=== PATIENT | male | born 1935 | race Caucasian/White ===

== ENCOUNTER → 2016-11-20 | Day surgery (SDC) | payer OTHER, MEDICARE ==
[~2016-11-20] VITALS: Ht 175.3 cm; Wt 77.1 kg
[~2016-11-20] MED LIST: AMLODIPINE BESYL5 M1 PO; AMLODIPINE5 MG PO; ARICEPT 5MG TAB5 MG PO; ASPIR 8181 MG PO; ASPIRIN EC81 M1 PO; COUMADIN 2 MG TA2 MG PO; COUMADIN 5 MG TA5 MG PO; COUMADIN3 M1 PO; DEPAKOTE ER 25250 MG PO; DIVALPROEX SOD250 M1 PO; DIVALPROEX SOD250 M2 PO; EXELON1 EACH TOP; FINASTERIDE5 M1 PO; FLOMAX(MONOGRA0.4 MG PO; FLOMAX0.4 M1 PO; FOLIC ACID0.4 M1 PO; FOLIC ACID0.8 MG PO; KLOR-CON 1010 ME1 PO; KLOR-CON 10MEQ10 MEQ PO; LISINOPRIL2.5 MG PO; LISINOPRIL20 M1 PO; MINITRAN1 EAC2 TOP; MULTIVITAMIN1 TAB PO; NITROGLYCER0.4 MG/HR TOP; PROS5 PO; TYLENOL TAB 32325 MG PO; VITAB121000 PO; VITAMIN D32000 I1 PO; ZOCOR20 M1 PO; ZOCOR5 MG PO; ZOLOFT 100 MG100 MG PO; ZOLOFT100 M1 PO
[2016-11-20 06:42] LABS: PT 12.3 SEC (9.4-12.5)
--- NOTE | 2016-11-23 17:14 | Operative Report ---
Operative/Inv Procedure Report Surgery Date: 11/20/16 Name of Procedure: Open mesh repair of umbilical hernia Pre-Operative Diagnosis: Umbilical hernia and left Spigelian hernia Post-Operative Diagnosis: Just umbilical hernia Estimated Blood Loss: scant Surgeon/Solar Sales Representative And Assessor: JÚNIOR GALAN,GURVINDER FARFAN Anesthesia: general endotracheal tube Operative/Procedure Note Note: Patient was placed on the OR table in the supine position. After successful induction of general anesthesia, another timeout was done, antibiotics given, the abdomen was clipped prepped and draped in the usual sterile fashion. Upon exam he had an obvious umbilical hernia, but I could not feel the Spigelian. An incision was planned overlying the umbilical hernia, this spot was infiltrated with local anesthetic and then made with a 15 blade. This was deepened with cautery and the herniated fat and overlying sac were dissected circumferentially off the fascia, defining the true edges of the defect. It was oriented horizontally, we then inserted the Ventralex coated 4.3 centimeter mesh underneath the defect using the tails to center it and then closed the defect with interrupted 2-0 Maxon sutures in this case 4, incorporating the mesh with each bite. The subcutaneous layer and Eber's fascia were reapproximated to cover. The incision was irrigated and then the skin was reapproximated with a running subcuticular 4-0 Biosyn, followed by Mastisol, Steri-Strips Telfa Tegaderm. We turned our attention to the left lower quadrant, after infiltrating local anesthetic and made an incision about 4 cm long transverse spanning the semilunar line. This was deepened to the fascia of both the oblique and the rectus muscles these 2 fascias were opened and the underlying muscle layer was explored and through this incision we were able to explore both inferiorly and superiorly medially and laterally and there was no obvious hernia defect, despite the history. There was no obvious left inguinal hernia either. So we closed these fascial incisions with 2-0 Maxon suture reapproximated the subcutaneous layers with interrupted 3-0 Vicryl sutures and a running subcuticular 4-0 Biosyn suture for the skin itself followed by Mastisol Steri- Strips Telfa and Tegaderm. Overall EBL minimal lap and sponge counts correct wound expectancy clean IV fluids crystalloid complications none patient tolerated the procedure well was awakened extubated returned to the recovery room in satisfactory condition.
== END ==
LOC: STS 02:56
PROVIDERS: Surgery
DX: K42.9 Umbilical hernia without obstruction or gangrene (principal); I48.91 Unspecified atrial fibrillation; Z79.01 Long term (current) use of anticoagulants; I10 Essential (primary) hypertension; Z95.0 Presence of cardiac pacemaker; I25.10 Atherosclerotic heart disease of native coronary artery without angina pectoris; F03.90 Unspecified dementia, unspecified severity, without behavioral disturbance, psychotic disturbance, mood disturbance, and anxiety
CPT/HCPCS: 36415; C1781; C9399; J0131; J0690; J1885; J2001

== ENCOUNTER 2017-01-01 15:50 | Emergency (ER) | payer OTHER, MEDICARE ==
[~2017-01-01] VITALS: Ht 182.9 cm; Wt 81.6 kg
--- NOTE | 2017-01-01 16:18 | ED GENERAL ADULT ---
History of Present Illness General Chief Complaint: Altered Mental Status Stated Complaint: AMS Source: patient, family, EMS Exam Limitations: confusion, dementia Allergies Coded Allergies: quinidine (UNKNOWN - PER PT DOES NOT REMEMBER 12/16/15) Reconcile Medications Amlodipine Besylate 5 MG TABLET 1 TAB PO DAILY BP (Reported) Aspirin (Ecotrin*) 81 MG TABLET.DR 1 TAB PO 3XW HEART/BLOOD (Reported) Divalproex Sodium 250 MG TABLET.DR 250 MG PO BID UNKNOWN (Reported) Finasteride 5 MG TABLET 1 TAB PO DAILY BPH (Reported) Folic Acid 0.4 MG TABLET 1 TAB PO DAILY SUPPLEMENT (Reported) Lisinopril (Unknown Strength) TABLET (Unknown Dose) PO DAILY BP (Reported) Nitroglycerin (Minitran) 0.4 MG/HOUR PATCH.TD24 1 PATCH TOP AD CHEST PAIN/ HEART (Reported) Potassium Chloride (Klor-Con 10) 10 MEQ TABLET.ER 1 TAB PO DAILY SUPPLEMENT ( Reported) Rivastigmine (Exelon) (Unknown Strength) PATCH.TD24 (Unknown Dose) TOP AD PATCH (Reported) Sertraline HCl (Zoloft) 100 MG TABLET 1 TAB PO DAILY DEPRESSION (Reported) Simvastatin (Zocor*) 20 MG TABLET 1 TAB PO DAILY CHOLESTEROL (Reported) Tamsulosin HCl (Flomax) 0.4 MG CAP.ER.24H 1 CAP PO DAILY BPH (Reported) Warfarin Sodium (Coumadin) (Unknown Strength) TABLET (Unknown Dose) PO AD BLOOD THINNER (Reported) Triage Nurses Notes Reviewed? yes HPI: Patient is an 81 year old male brought in by EMS for evaluation of change in mental status over the past 2 days, significantly more pronounced today. Patient's friend reports that patient has been severely confused and increasing generalized weakness today. Patient normally able to ambulate and participate in his care, has not been able to get out of bed without significant assistance today. Patient had a urine sample sent by his primary doctor yesterday, they are not sure what the results are. Patient complaining of frontal headache and dizziness. Dizziness is consistent with his chronic vertigo. Pain is mild. Patient has a chronic wound to his left anterior abdominal wall since having hernia surgery by Dr. Patel in October. Patient seen weekly by the surgeon, last seen on Wednesday, told that the wound "looked okay". Patient's friend reports that patient often sticks his fingers into the wound and that there've been blood clots from the wound. Denies recent trauma, chest pain, vomiting, diarrhea, cough, dyspnea (SHIVAM BOBBY) Vital Signs & Intake/Output Vital Signs & Intake/Output Vital Signs Date Time Temp Pulse Resp B/P Pulse O2 O2 Flow FiO2 Ox Delivery Rate 01/01 2145 98.6 89 18 154/79 100 Room Air 01/01 2102 98.3 89 15 154/89 100 Room Air 01/01 2035 99.8 80 18 150/84 100 Room Air 01/01 1939 100.7 01/01 1912 100.7 89 18 115/74 100 Room Air 01/01 1753 99 Room Air 01/01 1751 101.2 01/01 1730 101.0 89 18 124/74 99 Room Air 01/01 1628 101.2 100 20 164/74 100 Room Air ED Intake and Output 01/02 0000 01/01 1200 Intake Total Output Total 350 Balance -350 Output, Urine 350 Patient 180 lb Weight Past History Medical History Any Pertinent Medical History? see below for history Neurological: dementia, seizure Cardiovascular: aortic aneurysm, AFIB, hypertension, hyperlipidemia, PACEMAKER X 2 ( 5 BATTERY HLD CABG aortic valve replacement Renal: benign prost hyperplasia, KIDNEY STONES Psychiatric: depression Surgical History Surgical History: CABG, VALVE REPLACEMENT Hernia repair Psychosocial History Who do you live with Patient/Self What is your primary language Northern Irish Family History Hx Contributory? No (SHIVAM BOBBY) Review of Systems Review of Systems Constitutional: Reports: malaise, weakness. EENTM: Reports: no symptoms. Respiratory: Denies: cough, short of breath. Cardiovascular: Denies: chest pain. GI: Denies: diarrhea, vomiting. Genitourinary: Reports: no symptoms. Musculoskeletal: Reports: no symptoms. Skin: Reports: no symptoms. Neurological/Psychological: Reports: confusion, headache, weakness. Denies: unable to move lower ext, unable to move upper ext. Hematologic/Endocrine: Reports: bruising, bleeding. Immunologic/Allergic: Denies: splenectomy. (SHIVAM BOBBY) Physical Exam Physical Exam General Appearance: alert, awake Head: atraumatic, normal appearance Eyes: Bilateral: normal appearance, PERRL, EOMI. Ears, Nose, Throat: normal pharynx, normal ENT inspection, hearing grossly normal Neck: normal inspection, supple, full range of motion Respiratory: normal breath sounds, no respiratory distress, lungs clear Cardiovascular: regular rate/rhythm Peripheral Pulses: 2+ radial (R), 2+ radial (L), 2+ dorsalis pedis (R), 2+ dorsalis pedis (L) Gastrointestinal: normal bowel sounds, soft, 4 cm wound to left mid abdominal wall with blood clots on dressing. No significant surrounding erythema. Wound is malodorous. Back: normal inspection, normal range of motion, no vertebral tenderness Extremities: normal capillary refill, normal range of motion, 1+ bilateral lower extremity edema Neurologic/Psych: awake, alert, Disoriented to place and time. Patient slow to respond to questions. Skin: warm/dry, see abdominal exam Lymphatic: no anterior cervical korey Core Measures ACS in differential dx? No CVA/TIA Diagnosis: Yes NIH Stroke Scale: Total 3 Dt/Tm Last Known Well: No Neurological S/S of CVA: Acute Confusion, Difficulty Speaking Reason tPA not ordered: Medical Contraindication Severe Sepsis Present: No Septic Shock Present: No (LIVIER FARFAN,SHIVAM) Progress Differential Diagnoses I considered the following diagnoses in my evaluation of the patient: Intracranial bleed, stroke, pneumonia, sepsis, UTI, abdominal abscess, dementia Diagnostic Imaging: Viewed by Me: Radiology Read, CT Scan. Discussed w/RAD: Radiology Read, CT Scan. Radiology Impression: PATIENT: ABBY HOWELL PRESENT AGE: 81 PATIENT ACCOUNT NO: [id number] : 36 LOCATION: [facility] ORDERING PHYSICIAN: SHIVAM FARFAN SERVICE DATE: 01/01/17 EXAM TYPE: CAT - CT ABD & PELVIS W IV CONTRAST; CT HEAD WO IV CONTRAST EXAMINATION: CT HEAD WITHOUT CONTRAST: CT of the abdomen and pelvis with IV contrast CLINICAL INFORMATION: History of recent hernia surgery and presence of the wound. Confusion and headache. Patient is on Coumadin. Change in mental status. Fever. Open abdominal wound. COMPARISON: None TECHNIQUE: Contiguous axial imaging was performed from the skull base to vertex without intravenous administration of contrast. In addition, can take it with axial imaging was performed of the abdomen and pelvis following intravenous administration of 94 mL of Optiray 320. Coronal and sagittal reformats obtained at the acquisition workstation. DLP: 302 mGy-cm for the abdomen/pelvis. 744 mGy-cm for head. FINDINGS: HEAD: There are bilateral large subdural hygromas larger on the left than right covering the cerebral convexities. This results in a [id number] midline shift of 7 mm. Some acute subdural blood is seen in the high right parietal region posteriorly. Series 2, image 47. In addition, there is acute intracerebral hemorrhage interposed between the lentiform nucleus and the insular lobe. The hematoma is 1.3 cm x 1.6 cm, and is surrounded by vasogenic edema. There is some motion degradation involving the initial sections of base of the brain and posterior fossa. No subarachnoid hemorrhage is detected. There is no evidence of an acute territorial infarction. Sutherland-white matter tissue differentiation is maintained. The ventricles are normal in size. Abnormal attenuation within the brain parenchyma is seen surrounding the acute hemorrhage as discussed above. ABDOMEN/ PELVIS: DIRECTOR OF RETAIL MERCHANDISING: The heart is enlarged and the patient has a dual-lead pacemaker. There is stool impaction rectosigmoid colon with formed stool throughout the rest of the colon. The significant finding in the abdominal portion of the exam is a large encapsulated fluid and air-containing abscess involving the anterior abdominal wall to the left of midline in the area of previous surgery. This abscess measures 7.6 cm in width, 3 to 4 cm in AP diameter, and 12 to 13 cm in cephalocaudad dimension. There is surrounding cellulitis. An open wound may be present. The abscess cannot be from the adjacent rectus muscle and may involve the muscle itself. Opacities in both posterior costophrenic sulci either represent dependent atelectasis or an infectious process. A small calcified node is seen in the left cardiophrenic fat pad just above the diaphragm. Liver is normal in size showing no focal disease. The gallbladder contains at least 7 small gallstones. The pancreas is normal. The spleen measures 13 cm in oblique diameter. Neither kidney shows evidence of hydronephrosis or stone formation. There is cortical atrophy both kidneys and cortical scarring of the lower pole the left kidney. The urinary bladder is distended. The small and large intestine are normal. There is no bulk adenopathy. Diffuse arterial vascular disease is seen but there is no aneurysm. The prostate is average in size. There is no free fluid in the abdominal cavity. No free air is seen. There is fusion of the vertebral bodies at L4-L5 with obliteration of the disc space. A large Schmorl's node is seen involving the inferior endplate of L1. Facet arthropathy is present in the lower lumbar sacral spine. IMPRESSION: 1. Acute intracranial hemorrhage in the left frontal region between the lentiform nucleus and the insular lobe. Surrounding vasogenic edema. 2. Bilateral convexity subdural hygromas larger on the left than right. Midline shift to 7 mm from left to right. No uncal herniation. 3. Small acute component of the right subdural hematoma in the high parietal region. 4. Significant anterior abdominal wall abscess left of midline apparently in the region of the wound dehiscence following hernia surgery. 5. Cholelithiasis. 6. Cardiomegaly with pacemaker wires. 7. 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 This critical result was discussed with Shivam FARFAN at 7:10 PM on January 01 and it was ascertained that the content and urgency of the report was understood at the time of direct communication. DICTATED BY: ALETHA FISHER MD DATE/TIME DICTATED:01/01/171838 DATA MIGRATION CONSULTANT:OLIVER DATE/TIME TRANSCRIBED:1838 CONFIDENTIAL, DO NOT COPY WITHOUT APPROPRIATE AUTHORIZATION. < Electronically signed in Other Vendor System> SIGNED BY: ALETHA FISHER MD 01/01/171924 CXR Impression: PATIENT: ABBY HOWELL PRESENT AGE: 81 PATIENT ACCOUNT NO: [id number] : 36 LOCATION: [facility] ORDERING PHYSICIAN: SHIVAM FARFAN SERVICE DATE: 01/01/17 EXAM TYPE: RAD - XRY- PORTABLE CHEST XRAY EXAMINATION: XR PORTABLE CHEST CLINICAL INFORMATION: Confusion and fevers, question pneumonia. COMPARISON: None TECHNIQUE: Portable AP erect view of the chest was obtained. FINDINGS: The heart appears enlarged with a right prepectoral subclavian dual-lead pacer. There are multiple intact sternal wires. The lungs appear well expanded and clear. Rounded nodule at the left lung base in the cardiophrenic angle is likely a calcified granuloma. IMPRESSION: No acute intrathoracic process is seen. DICTATED BY: MAREK PARKER MD DATE/TIME DICTATED:01/01/171714 DATA MIGRATION CONSULTANT:OLIVER DATE/TIME TRANSCRIBED:01/01/171714 CONFIDENTIAL, DO NOT COPY WITHOUT APPROPRIATE AUTHORIZATION. <Electronically signed in Other Vendor System> SIGNED BY: MAREK PARKER MD 01/01/17 1720 Initial ED EKG: atrial flutter, ventricular paced, no acute ischemic EKG changes. Prior EKG: unchanged (LIVIER FARFAN,SHIVAM) Plan of Care: Orders Procedure Date/time Status LACTIC ACID 01/01 193 Complete BLOOD PRODUCT PICKUP 01/01 191 Active FRESH FROZEN PLASMA 01/01 190 Complete TYPE & SCREEN (NOT X-MATCH) 01/01 190 Complete Add-on Test (ER Only) 01/01 1837 Active CULTURE,URINE 01/01 163 Active URINALYSIS 01/01 163 Complete PROTHROMBIN TIME 01/01 163 Complete BLOOD CULTURE 01/01 163 Active LACTIC ACID 01/01 163 Complete COMPREHENSIVE METABOLIC PANEL 01/01 163 Complete CBC WITHOUT DIFFERENTIAL 01/01 163 Complete EKG 01/01 163 Active Current Medications Sig/Shasha Start time Last Medication Dose Stop Time Status Admin Acetaminophen 650 MG ONCE ONE 01/01 1645 CAN (Tylenol) 01/01 1646 Laboratory Tests 01/01/17 193: Lactic Acid 1.0 01/01/17 172: Anion Gap 10, Estimated GFR > 60, BUN/Creatinine Ratio 17.0, Glucose 92, Lactic Acid 1.4, Calcium 9.5, Total Bilirubin 1.1, AST 33, ALT 22, Alkaline Phosphatase 84, Total Protein 7.8, Albumin 3.8, Globulin 4.0, Albumin/Globulin Ratio 1.0 L, PT 19.0 H, INR 1.82 H, CBC w Diff NO MAN DIFF REQ, RBC 3.90 L, MCV 85.6, MCH 28.5, RDW 15.0 H, MPV 8.9, Gran % 77.1 H, Lymphocytes % 6.4 L, Monocytes % 14.7 H, Eosinophils % 1.5, Basophils % 0.3, Absolute Granulocytes 9.3 H, Absolute Lymphocytes 0.8 L, Absolute Monocytes 1.8 H, Absolute Eosinophils 0.2 , Absolute Basophils 0, PUBS MCHC 33.3 01/01/17 1704: Urine Color YEL, Urine Clarity CLEAR, Urine pH 7.5, Ur Specific [place] 1.015, Urine Protein NEG, Urine Ketones NEG, Urine Nitrite NEG, Urine Bilirubin NEG, Urine Urobilinogen 0.2, Ur Leukocyte Esterase NEG, Ur Microscopic SEDIMENT EXAMINED, Urine RBC 5-10 H, Ur Epithelial Cells RARE, Urine Mucus RARE, Urine Hemoglobin SMALL H, Urine Glucose NEG Microbiology 01/01 1730 BLOOD: Blood Culture - RECD 01/01 1721 BLOOD: Blood Culture - RECD 01/01 1704 URINE ROUT: Urine Culture - RECD 01/01/2017 4:56:22 PM: Discussed with Dr. Moscoso. 01/01/2017 5:55:27 PM: Discussed with Dr. Alvarez: once patient has obtained CT scan will review. 01/01/2017 6:49:47 PM: Patient re-evaluated, no change in neurologic status. CT scans reviewed. [facility] contacted to read the CT scans 190: Discussed with Dr. Sahu: subdurals are chronic. No neurosurgical intervention. Neurology should be contacted regarding ICH. 01/01/2017 7:17:29 PM: Discussed with Dr. Alvarez: surgical PA will come down to see patient. 01/01/2017 7:39:48 PM: Discussed with Dr. Perkins: hold antiplatelets and anticoagulants. Frequent neuro checks, should be admitted to ICU. 01/01/2017 8:39:53 PM: Medicine declined admission. Dr. Aguirre discussed case with Dr. Ardon who recommends transfer to [facility]. Discussed with Dr. Orozco([facility] attending): will contact his residents and call back regarding admission to floor or send to ED. Contacted by [facility]: patient to go to [facility] ED for evaluation. (SHIVAM BOBBY) Departure Departure Disposition: OTHER [facility] (ACUTE) Condition: Stable Clinical Impression Primary Impression: Intracranial bleed Secondary Impressions: Abdominal abscess, Hemorrhagic stroke Referrals: DOMENICO CHAND MD (PCP/Family) Departure Forms: Customer Survey General Discharge Information (SHIVAM BOBBY) PA/IS ANALYST Co-Sign Statement Statement: ED Attending supervision documentation- [X] I saw and evaluated the patient. I have also reviewed all the pertinent lab results and diagnostic results. I agree with the findings and the plan of care as documented in the PA's/IS ANALYST's documentation. [X] I have reviewed the ED Record and agree with the PA's/IS ANALYST's documentation. [] Additions or exceptions (if any) to the PAs/IS ANALYST's note and plan are summarized below: [] (IVETH GALAN,OSMANI) Critical Care Note Critical Care Note Critical Care Time: 30-74 min (LIVIER FARFAN,SHIVAM)
--- NOTE | 2017-01-01 17:20 | RADIOLOGY REPORT ---
EXAMINATION: XR PORTABLE CHEST CLINICAL INFORMATION: Confusion and fevers, question pneumonia. COMPARISON: None TECHNIQUE: Portable AP erect view of the chest was obtained. FINDINGS: The heart appears enlarged with a right prepectoral subclavian dual-lead pacer. There are multiple intact sternal wires. The lungs appear well expanded and clear. Rounded nodule at the left lung base in the cardiophrenic angle is likely a calcified granuloma. IMPRESSION: No acute intrathoracic process is seen.
[2017-01-01 17:36] LABS: ABSOLUTE BASOPHIL COUNT 0 /CUMM (0.0-0.2); ABSOLUTE EOSINOPHIL COUNT 0.2 /CUMM (0.0-0.7); ABSOLUTE GRANULOCYTE CT 9.3 /CUMM (1.4-6.5); ABSOLUTE LYMPH COUNT 0.8 /CUMM (1.2-3.4); ABSOLUTE MONOCYTE COUNT 1.8 /CUMM (0.10-0.60); BASOPHIL % 0.3 % (0.0-2.0); EOSINOPHIL % 1.5 % (0-5); GRANULOCYTE % 77.1 % (42.2-75.2); HEMATOCRIT 33.4 % (42-52); MEAN CORPUSCULAR HGB 28.5 PG (27.0-31.0); MEAN CORPUSCULAR HGB CONC 33.3 G/DL (33.0-37.0); MEAN CORPUSCULAR VOLUME 85.6 FL (80.0-94.0); MEAN PLATELET VOLUME 8.9 FL (7.4-10.4); PLATELET COUNT 286 /CUMM (130-400); WHITE BLOOD CELL COUNT 12.1 /CUMM (4.8-10.8)
--- NOTE | 2017-01-01 19:25 | CT SCAN REPORT ---
EXAMINATION: CT HEAD WITHOUT CONTRAST: CT of the abdomen and pelvis with IV contrast CLINICAL INFORMATION: History of recent hernia surgery and presence of the wound. Confusion and headache. Patient is on Coumadin. Change in mental status. Fever. Open abdominal wound. COMPARISON: None TECHNIQUE: Contiguous axial imaging was performed from the skull base to vertex without intravenous administration of contrast. In addition, can take it with axial imaging was performed of the abdomen and pelvis following intravenous administration of 94 mL of Optiray 320. Coronal and sagittal reformats obtained at the acquisition workstation. DLP: 302 mGy-cm for the abdomen/pelvis. 744 mGy-cm for head. FINDINGS: HEAD: There are bilateral large subdural hygromas larger on the left than right covering the cerebral convexities. This results in a [id number] midline shift of 7 mm. Some acute subdural blood is seen in the high right parietal region posteriorly. Series 2, image 47. In addition, there is acute intracerebral hemorrhage interposed between the lentiform nucleus and the insular lobe. The hematoma is 1.3 cm x 1.6 cm, and is surrounded by vasogenic edema. There is some motion degradation involving the initial sections of base of the brain and posterior fossa. No subarachnoid hemorrhage is detected. There is no evidence of an acute territorial infarction. Sutherland-white matter tissue differentiation is maintained. The ventricles are normal in size. Abnormal attenuation within the brain parenchyma is seen surrounding the acute hemorrhage as discussed above. ABDOMEN/PELVIS: FIXED WING AIRCRAFT FLIGHT ENGINEER: The heart is enlarged and the patient has a dual-lead pacemaker. There is stool impaction rectosigmoid colon with formed stool throughout the rest of the colon. The significant finding in the abdominal portion of the exam is a large encapsulated fluid and air-containing abscess involving the anterior abdominal wall to the left of midline in the area of previous surgery. This abscess measures 7.6 cm in width, 3 to 4 cm in AP diameter, and 12 to 13 cm in cephalocaudad dimension. There is surrounding cellulitis. An open wound may be present. The abscess cannot be from the adjacent rectus muscle and may involve the muscle itself. Opacities in both posterior costophrenic sulci either represent dependent atelectasis or an infectious process. A small calcified node is seen in the left cardiophrenic fat pad just above the diaphragm. Liver is normal in size showing no focal disease. The gallbladder contains at least 7 small gallstones. The pancreas is normal. The spleen measures 13 cm in oblique diameter. Neither kidney shows evidence of hydronephrosis or stone formation. There is cortical atrophy both kidneys and cortical scarring of the lower pole the left kidney. The urinary bladder is distended. The small and large intestine are normal. There is no bulk adenopathy. Diffuse arterial vascular disease is seen but there is no aneurysm. The prostate is average in size. There is no free fluid in the abdominal cavity. No free air is seen. There is fusion of the vertebral bodies at L4-L5 with obliteration of the disc space. A large Schmorl's node is seen involving the inferior endplate of L1. Facet arthropathy is present in the lower lumbar sacral spine. IMPRESSION: 1. Acute intracranial hemorrhage in the left frontal region between the lentiform nucleus and the insular lobe. Surrounding vasogenic edema. 2. Bilateral convexity subdural hygromas larger on the left than right. Midline shift to 7 mm from left to right. No uncal herniation. 3. Small acute component of the right subdural hematoma in the high parietal region. 4. Significant anterior abdominal wall abscess left of midline apparently in the region of the wound dehiscence following hernia surgery. 5. Cholelithiasis. 6. Cardiomegaly with pacemaker wires. 7. 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 This critical result was discussed with Shivam FARFAN at 7:10 PM on January 01 and it was ascertained that the content and urgency of the report was understood at the time of direct communication.
--- NOTE | 2017-01-01 21:43 | Cons- General Surgery ---
General Information and HPI Consulting Request Date of Consult: 01/01/17 Requested By: Shivam Recinos PA-C (ED staff) Reason for Consult: Draining abdominal wound Source of Information: patient, family, old records Exam Limitations: patient's age, dementia History of Present Illness: Patient is an 81-year-old male with a past medical history significant for aortic valve replacement/CABG/A. fib (on Coumadin), hypertension, hyperlipidemia , permanent pacemaker, BPH, history of nephrolithiasis, dementia, seizure, and depression who is status post umbilical hernia and left repair with mesh on by Joseluis Patel MD. Preoperatively, patient was thought to have a Spigelian hernia, but exploration revealed no evidence of this or inguinal hernia. Patient's postoperative course was complicated by a postoperative hematoma, requiring bedside evacuation and drainage. He was last seen by Joseluis Patel MD 4 days ago and was told that the wound looked "fine". It remains open at this time, and the patient and his caregiver have been applying dry dressings daily. He was brought into the ED today due to severe confusion and increased generalized weakness. He was found to be incontinent of a large amount of urine and febrile to 101.2. He also complained of frontal headache and dizziness upon presentation. The dizziness is thought to be consistent with his chronic vertigo. Workup in the ED revealed an acute intracranial hemorrhage with midline shift and an anterior wall abscess underlying the left lower quadrant open wound. Surgical consultation is being requested for management of the wound. Allergies/Medications Allergies: Coded Allergies: quinidine (UNKNOWN - PER PT DOES NOT REMEMBER 12/16/15) Home Med List: Amlodipine Besylate 5 MG TABLET 1 TAB PO DAILY BP (Reported) Aspirin (Ecotrin*) 81 MG TABLET.DR 1 TAB PO 3XW HEART/BLOOD (Reported) Divalproex Sodium 250 MG TABLET.DR 250 MG PO BID UNKNOWN (Reported) Finasteride 5 MG TABLET 1 TAB PO DAILY BPH (Reported) Folic Acid 0.4 MG TABLET 1 TAB PO DAILY SUPPLEMENT (Reported) Lisinopril (Unknown Strength) TABLET (Unknown Dose) PO DAILY BP (Reported) Nitroglycerin (Minitran) 0.4 MG/HOUR PATCH.TD24 1 PATCH TOP AD CHEST PAIN/ HEART (Reported) Potassium Chloride (Klor-Con 10) 10 MEQ TABLET.ER 1 TAB PO DAILY SUPPLEMENT ( Reported) Rivastigmine (Exelon) (Unknown Strength) PATCH.TD24 (Unknown Dose) TOP AD PATCH (Reported) Sertraline HCl (Zoloft) 100 MG TABLET 1 TAB PO DAILY DEPRESSION (Reported) Simvastatin (Zocor*) 20 MG TABLET 1 TAB PO DAILY CHOLESTEROL (Reported) Tamsulosin HCl (Flomax) 0.4 MG CAP.ER.24H 1 CAP PO DAILY BPH (Reported) Warfarin Sodium (Coumadin) (Unknown Strength) TABLET (Unknown Dose) PO AD BLOOD THINNER (Reported) Past History Medical History Neurological: dementia, seizure EENT: NONE Cardiovascular: aortic aneurysm, AFIB, hypertension, hyperlipidemia, PACEMAKER X 2 ( 5 BATTERY HLD CABG aortic valve replacement Respiratory: NONE Gastrointestinal: NONE Hepatic: NONE Renal: benign prost hyperplasia, KIDNEY STONES Musculoskeletal: NONE Psychiatric: depression Endocrine: NONE Blood Disorders: NONE Cancer(s): NONE HEAD WAITRESS/Reproductive: NONE Surgical History Pertinent Surgical History: CABG, hernia repair-umbilical, VALVE REPLACEMENT Hernia repair Psychosocial History Where Do You Live? Home Services at Home: Home Health Aide Primary Language: Indonesian ETOH Use: denies use Illicit Drug Use: denies illicit drug use Review of Systems Review of Systems: Positive for fever, generalized weakness, confusion, headache, dizziness, and urinary incontinence. Negative for chest pain, palpitations, shortness of breath, cough, abdominal pain, nausea, vomiting, diarrhea, constipation. Exam & Diagnostic Data Vital Signs and I&O Vital Signs Date Time Temp Pulse Resp B/P Pulse O2 O2 Flow FiO2 Ox Delivery Rate 01/01 2102 98.3 89 15 154/89 100 Room Air 01/01 2035 99.8 80 18 150/84 100 Room Air 01/01 1939 100.7 01/01 1912 100.7 89 18 115/74 100 Room Air 01/01 1753 99 Room Air 01/01 1751 101.2 01/01 1730 101.0 89 18 124/74 99 Room Air 01/01 1628 101.2 100 20 164/74 100 Room Air Physical Exam: Gen.: Patient is resting, but easily arousable. He is somewhat hard of hearing. He follows commands and verbalizes minimally. He displays some confusion and memory loss. Abdomen: There is a 4 cm, horizontal, open surgical incision in the left lower quadrant. The wound was explored and found to contain a large amount of malodorous, old organized hematoma with some purulence. There is mild surrounding erythema of the skin. The hematoma was evacuated and the wound was copiously irrigated with about 750 ML's of normal saline. It tracked down to fascia, 6 cm superiorly and about 5 cm inferiorly. No fascial defects were appreciated on digital exam. A wet-to-dry Kerlix and gauze dressing was applied. Patient tolerated this well. The other umbilical incision site is well-healed, without signs of infection. Last 24 Hours of Labs: Laboratory Tests 01/01 01/01 1937 1721 Chemistry Sodium (137 - 145 mmol/L) 135 L Potassium (3.5 - 5.1 mmol/L) 4.6 Chloride (98 - 107 mmol/L) 96 L Carbon Dioxide (22 - 30 mmol/L) 29 Anion Gap (5 - 16) 10 BUN (9 - 20 mg/dL) 17 Creatinine (0.7 - 1.2 mg/dL) 1.0 Estimated GFR (>60 ml/min) > 60 BUN/Creatinine Ratio (7 - 25 %) 17.0 Glucose (65 - 99 mg/dL) 92 Lactic Acid (0.7 - 2.1 mmol/L) 1.0 1.4 Calcium (8.4 - 10.2 mg/dL) 9.5 Total Bilirubin (0.2 - 1.3 mg/dL) 1.1 AST (17 - 59 U/L) 33 ALT (21 - 72 U/L) 22 Alkaline Phosphatase (< 127 U/L) 84 Total Protein (6.3 - 8.2 g/dL) 7.8 Albumin (3.5 - 5.0 g/dL) 3.8 Globulin (1.9 - 4.2 gm/dL) 4.0 Albumin/Globulin Ratio (1.1 - 2.2 %) 1.0 L Coagulation PT (9.4 - 12.5 SEC) 19.0 H INR (0.90 - 1.17) 1.82 H Hematology CBC w Diff NO MAN DIFF REQ WBC (4.8 - 10.8 /CUMM) 12.1 H RBC (4.70 - 6.10 /CUMM) 3.90 L Hgb (14.0 - 18.0 G/DL) 11.1 L Hct (42 - 52 %) 33.4 L MCV (80.0 - 94.0 FL) 85.6 MCH (27.0 - 31.0 PG) 28.5 RDW (11.5 - 14.5 %) 15.0 H Plt Count (130 - 400 /CUMM) 286 MPV (7.4 - 10.4 FL) 8.9 Gran % (42.2 - 75.2 %) 77.1 H Lymphocytes % (20.5 - 51.1 %) 6.4 L Monocytes % (1.7 - 9.3 %) 14.7 H Eosinophils % (0 - 5 %) 1.5 Basophils % (0.0 - 2.0 %) 0.3 Absolute Granulocytes (1.4 - 6.5 /CUMM) 9.3 H Absolute Lymphocytes (1.2 - 3.4 /CUMM) 0.8 L Absolute Monocytes (0.10 - 0.60 /CUMM) 1.8 H Absolute Eosinophils (0.0 - 0.7 /CUMM) 0.2 Absolute Basophils (0.0 - 0.2 /CUMM) 0 PUBS MCHC (33.0 - 37.0 G/DL) 33.3 04/07 1704 Urines Urine Color (YEL,AMB,STR) YEL Urine Clarity (CLEAR) CLEAR Urine pH (5.0 - 8.0) 7.5 Ur Specific [place] (1.001 - 1.035) 1.015 Urine Protein (NEG,<30 MG/DL) NEG Urine Ketones (NEG) NEG Urine Nitrite (NEG) NEG Urine Bilirubin (NEG) NEG Urine Urobilinogen (0.1 - 1.0 EU/dl) 0.2 Ur Leukocyte Esterase (NEG) NEG Ur Microscopic SEDIMENT EXAMINED Urine RBC (0 - 5 /HPF) 5-10 H Ur Epithelial Cells (NONE,FEW) RARE Urine Mucus (FEW,NONE) RARE Urine Hemoglobin (NEG) SMALL H Urine Glucose (N MG/DL) NEG Imaging Results: CT scans of the head, abdomen and pelvis revealed: 1. Acute intracranial hemorrhage in the left frontal region between the lentiform nucleus and the insular lobe. Surrounding vasogenic edema. 2. Bilateral convexity subdural hygromas larger on the left than right. Midline shift to 7 mm from left to right. No uncal herniation. 3. Small acute component of the right subdural hematoma in the high parietal region. 4. Significant anterior abdominal wall abscess left of midline apparently in the region of the wound dehiscence following hernia surgery. 5. Cholelithiasis. 6. Cardiomegaly with pacemaker wires. 7. 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 Assessment/Plan Assessment/Plan Patient is an 81-year-old male with multiple medical comorbidities, who underwent umbilical hernia repair with mesh and exploration for Spigelian hernia on 11/20/2016. Postoperative course was complicated by a hematoma, which is now infected. He received 1 dose of 3 g of Unasyn in the ED. Blood cultures were taken prior to administration of the antibiotics. No wound cultures were sent. Patient is now scheduled to be transferred to [place] for management of his intracranial bleed. I would recommend continuation of IV antibiotics, monitoring of temps, and BID wet to dry dressing changes. Pt can f/u with Dr. Patel upon discharge. Consult Acknowledgment - Thank you for your consult request.
[2017-01-01 21:45] VITALS: BP 154/79
== END 2017-01-01 22:22 | disposition short-term general hospital (02) ==
LOC: ERH 15:50
PROVIDERS: Physician Assistant
DX: I62.9 Nontraumatic intracranial hemorrhage, unspecified (principal); L02.211 Cutaneous abscess of abdominal wall; I63.9 Cerebral infarction, unspecified; F03.90 Unspecified dementia, unspecified severity, without behavioral disturbance, psychotic disturbance, mood disturbance, and anxiety; R56.9 Unspecified convulsions; I48.91 Unspecified atrial fibrillation; I10 Essential (primary) hypertension
CPT/HCPCS: 74177; 81001; 87040; 87086; 93005; 93010; 96365; 96372; 96375; 99291; J0131